=== PATIENT | female | born 1955 | race Caucasian/White ===

== ENCOUNTER 2016-09-18 14:31 | Outpatient (CLI) | payer BC, MEDICARE ==
[~2016-09-18 14:31] MED LIST: ABILIFY10 MG PO; AMITRIPTYLINE25 MG PO; ASPRIN OR; COUMADIN 5MG TAB5 MG PO; COUMADIN 7.5MG7.5 MG PO; CYMBALTA60 MG PO; DUONEB 3 MG/3 ML3 ML IH; FELDENE 20MG. C20 MG PO; FLONASE 50 MCG16 GM; FUROSEMIDE40 MG PO; HYDROCHLOROTHIA25 M1 PO; LORTAB 5/500 501 TAB PO; LORTAB 500 MG-71 TAB PO; METAXALONE800 MG PO; MUCINEX600 M1 PO; NASONEX0.05 MG/AC; NEURONTIN600 MG PO; PATANASE0.6% NS; POTASSIUM CHLO20 ME2 PO; PRILOSEC20 M1 PO; PROAIR HFA0.09 MG/AC IH; SINGULAIR10 MG PO; SKELAXIN800 MG PO; SYMBICORT1 AE1 IH; ULTRAM ER100 MG PO; VERAMYST27.5 MCG/A NS; VITAMIN D31000 IU PO; WARFARIN SOD5 MG PO; WARFARIN SODIU7.5 MG PO; ZOLPIDEM 10MG T10 MG PO
== END 2016-09-18 15:44 ==
LOC: ACC 14:31
DX: Z79.01 Long term (current) use of anticoagulants (principal); Z51.81 Encounter for therapeutic drug level monitoring
CPT/HCPCS: G0463

== ENCOUNTER 2016-10-02 14:25 | Outpatient (CLI) | payer BC, MEDICARE | END 2016-10-02 15:21 | LOC: ACC 14:25 | DX: Z79.01 Long term (current) use of anticoagulants (principal); Z51.81 Encounter for therapeutic drug level monitoring | CPT/HCPCS: G0463 ==

== ENCOUNTER 2016-10-16 14:33 | Outpatient (CLI) | payer MEDICARE | END 2016-10-16 15:45 | LOC: ACC 14:33 | DX: Z79.01 Long term (current) use of anticoagulants (principal); Z51.81 Encounter for therapeutic drug level monitoring | CPT/HCPCS: G0463 ==

== ENCOUNTER → 2017-05-06 | Outpatient (CLI) | payer MEDICARE, OTHER ==
--- NOTE | 2017-05-11 10:54 | RADIOLOGY REPORT PS360 ---
DIG MAMM-SCREEN JACK W/CAD CAD Screening ORDERING PHYSICIAN : Jose Luis Knight MD PATIENT AGE: 62 years GENDER: Female COMPARISON: Previous mammograms: Normal. INDICATION: Routine screening .62-yr-old. No hormones no new complaints previous left breast biopsy. Family history. Aunt and cousin with breast cancer TECHNIQUE: Standard CC and MLO images were obtained. R2 CAD reviewed. FINDINGS: Moderate fibrolinear elements bilaterally. RIGHT BREAST:. Stable with no significant on slight additional vascular calcification noted new features. The 6 mm axillary lymph node was seen in 2004. Unchanged. LEFT BREAST:. Visual inspection as well as CAD review note a focal area of density at the central breast just lateral to mid axis. This measuring up to 5.6 mm on the cc view and could be due to summation shadow as it is less evident on the MLO view. However given its overall appearance it does warrant additional spot view CC and MLO; with ultrasound left breast to further evaluate.. IMPRESSION: Left breast. .Small focal density noted on cc view lateral central breast.. .Warrants additional spot views and ultrasound left breast (. May merely be summation shadow) Right breast stable. Follow-up in one year on right BI-RADS CATEGORY: 0_Incomplete: Need additional imaging. RECOMMENDED FOLLOWUP: ADD ADDITIONAL IMAGING (A letter has been sent to the patient regarding results of the study.)
== END ==
LOC: RAD 16:15
DX: Z12.31 Encounter for screening mammogram for malignant neoplasm of breast (principal)
CPT/HCPCS: G0202

== ENCOUNTER 2017-05-17 15:33 | Emergency (ER) | payer MEDICARE, OTHER ==
[~2017-05-17] VITALS: Ht 165.1 cm; Wt 84.1 kg
--- NOTE | 2017-05-17 16:18 | Urgent Treatment Center Report ---
History of Present Issue Date/Time Seen by Provider 05/17/17 1616 Visit Reason Pt arrived:Walked Presenting Problem:PT EXPOSED TO POISON TATI YESTERDAY. TOOK BENADRAL BUT HASNT HELPED. Location if Accident: Onset of symptoms date/time:/ or onset unknown for:MEDICAL HX UNKNOWN Have you (or family members/close friends) recently traveled outside the [place]? N If Yes, where/when: Have you had exposure to infectious disease within the past month? TB? Other? Specify: c/o poison tati and requesting steroid injection. Went camping over the weekend. Itchy rash left flank/abdomen, right flank and near left shoulder blade since yesterday. Initially blistery and oozing but improved w/ benadryl cream. Adament she needs a steroid injection despite the risks. "because it typically gets in my blood and I get really sick from this". Pt aware of risk and side effects of steroid injections but still wants injection and not topical or PO steroids. Source patient Exam Limitations no limitations ALLERGIES Coded Allergies: adhesive (S-BLISTERING WELTS 03/04/17) amoxicillin (From Augmentin) (I-RASH 03/04/17) cefdinir (I-RASH 03/04/17) clarithromycin (I-RASH 03/04/17) clavulanic acid (From Augmentin) (I-RASH 03/04/17) codeine (NA-NAUSEA/VOMITING 03/04/17) latex (S-BLISTERING WELTS 03/04/17) sulfamethoxazole (From Bactrim) (I-RASH, DIARHEA 03/04/17) trimethoprim (From Bactrim) (I-RASH, DIARRHEA 03/04/17) Home Medications Reported Medications DULOXETINE HCL (Cymbalta 60MG) 60 MG PO BID Aripiprazole (Abilify) 2 MG PO DAILY Montelukast Sodium (Singulair) 10 MG PO QHS POTASSIUM CHL (Potassium Chloride) 20 MEQ PO BID Tramadol Hcl (Ultram Er 100MG) 300 MG PO BID Gabapentin (Neurontin) 600 MG PO TID HYDROCODONE 7.5MG/YRQQ805TI (Hydrocodon-Acetaminoph 7.5-500) 1 TAB PO Q6HP Piroxicam (Feldene 20MG) 20 MG PO DAILY HYDROCHLOROTHIAZIDE (Hydrochlorothiazide) 25 MG PO DAILY BUDESONIDE/FORMOTEROL FUMARATE (Symbicort 160-4.5 Mcg Inhaler) 2 PUFFS IH BID WARFARIN SOD (Warfarin 5MG) 5 MG PO ,, WARFARIN SOD (Warfarin 7.5MG) 7.5 MG PO S,,,SAT Metaxalone 800 MG PO TID Furosemide (Furosemide 40MG) 40 MG PO DAILY [ASPRIN] 1 TAB OR DAILY AMITRIPTYLINE HCL (Amitriptyline HCl) 25 MG PO QHS Zolpidem Tartrate (Zolpidem 10MG) 10 MG PO QHSP Albuterol Sulfate (Proair Hfa) 2 PUFFS IH Q6HP #1 INH OMEPRAZOLE MAGNESIUM (Prilosec 20MG) 40 MG PO QHS Albuterol/Ipratropiu (Duoneb) 3 ML IH Q4HP CHOLECALCIFEROL (VITAMIN D3) (Vitamin D) 1,000 IUNITS PO DAILY Mometasone Furoate (Nasonex) 2 SPR NA BID #1 BOT History Medical History General Angina: No [place]: No Hypertension? Yes Hyperlipidemia? Yes CHF? No COPD? Yes Asthma? Yes CVA? No Seizures? No Diabetes? No GB Disease: Yes MRSA? No TB? No Cancer? No Immunization HX DT/Tetanus UNKNOWN Surgical Hx Previous Surgery?Y HYSTRECTOMY-1988 APPY-1969 GALLBLADDER-1998 DX LAP- 1997 LEFT BUNIONECTOMY-2001 RT. WRIST CARPOL TUNNEL- 1994 back surgery Social History Smoking Hx Smoker: Never Smoker Tobacco: No Alcohol Alcohol: No Review of Systems All Other Systems Reviewed and Negative Constitutional denies chills, denies fever, denies malaise Eyes denies pain, denies other (itching) ENT denies: throat pain, throat swelling. Respiratory denies cough, denies shortness of breath Gastrointestinal denies nausea Musculoskeletal denies joint pain, denies muscle pain Skin see HPI Psychiatric/Neurological denies headache, denies numbness, denies tingling Physical Exam Vital Signs Vital Signs Date Time Temp Pulse Resp B/P Pulse O2 O2 Flow FiO2 Ox Delivery Rate 05/17 1548 98.2 76 18 132/80 96 General Appearance normal appearance Ear, Nose, Throat normal pharynx Respiratory Status No: respiratory distress. Cardiovascular no peripheral edema Neurologic alert, oriented x 3 Mental status normal mood/affect Skin maculopapular rash left flank/abdomen, right flank. Barely visible left scapular region. No drainage or erythema. Medical Decision Making LABS/Meds/Orders Pt receiving controlled substance in ED? No Results/Orders Current Medication Orders Sig/Aidee Start time Last Medication Dose Route Stop Time Status Admin Methylprednisolone 40 MG ONCE ONE 05/17 1645 AC 05/17 Acetate IM 05/17 1646 164 Methylprednisolone 0 .STK-MED ONE 05/17 1641 DC Acetate IM Departure Departure Time of Disposition 1654 Disposition DC Home or Self Care(routine) Clinical Impression Primary Impression: Contact dermatitis Qualifiers: Contact dermatitis type: unspecified Contact dermatitis trigger: unspecified trigger Qualified Code: L25.9 - Unspecified contact dermatitis, unspecified cause Condition STABLE Referrals Lila TAPIA,Jose Miguel (Family) Follow up immediately for new or worsening symptoms. You should notice improvement over the next 24-48 hours so if not, be sure to follow up Patient Instructions DI for Contact Dermatitis, Poison Tati, Poison [place], Poison [place] Additional Instructions * Poison Tati: Discussed how poison vine spreads. Be sure to wash everything you think you might have been wearing when you were exposed. * depomedrol Injection: you received an injection of depomedrol today. This is a steroid as we discussed. If you have surgery try to remember to tell them you received an injection today, 05/17/17. Remember as we discussed, steroids can cause you to feel flushed, jittery, difficult to sleep, energetic, higher blood pressure. You report you have taken steroids before and aware of this. * cool showers or compresses calms the itching. Oatmeal baths may help as well. * If you need additional medication to help with the itching, zyrtec in the morning and if necessary, benadryl at bedtime. Just remember benadryl causes drowsiness. * Cortisone cream may also help. Discharge Counseling Counseled pt/family regarding diagnosis, medications/RX, home care, follow up needs at 1645
[2017-05-17 16:51] VITALS: BP 132/80
== END 2017-05-17 16:51 | disposition home or self-care (01) ==
LOC: UTC 15:33
DX: L25.5 Unspecified contact dermatitis due to plants, except food (principal); Z79.01 Long term (current) use of anticoagulants; Z79.82 Long term (current) use of aspirin; Z79.891 Long term (current) use of opiate analgesic; Z79.899 Other long term (current) drug therapy; I10 Essential (primary) hypertension; E78.5 Hyperlipidemia, unspecified; J44.9 Chronic obstructive pulmonary disease, unspecified
CPT/HCPCS: J1030

== ENCOUNTER → 2017-05-25 | Outpatient (CLI) | payer MEDICARE, OTHER ==
--- NOTE | 2017-05-31 07:13 | RADIOLOGY REPORT PS360 ---
DIG MAMM-DX UNI A/VWS-LT W/CAD, US BREAST-LT COMPLETE W/AXILLA COMPARISON: 05/06/2017, 02/06/2016 INDICATION: Follow-up abnormal mammogram ORDERING PHYSICIAN: Jose Luis Knight MD PATIENT AGE: 62 years TECHNIQUE: Spot compression views are obtained along with left breast ultrasound FINDINGS: There is average fibroglandular tissue. Spot compression views show some minimal residual increased density at the 1:00 region. This however does appear to compress out on the focal spot compression views and is probably unchanged from 6-16 likely related to asymmetric fibroglandular tissue. Left breast ultrasound was obtained and shows a persistent hypoechoic area at 11:00 which measures approximately 4 x 4 millimeters. There is some posterior acoustical shadowing suspected at this area. No other significant anomalies are evident. IMPRESSION: Asymmetric density in the upper outer left breast probably related to fibroglandular tissue. Six-month follow-up recommended. Indeterminate findings regarding left breast ultrasound. 4 mm hypoechoic nodule with posterior acoustical shadowing at 11:00. Biopsy suggested. BI-RADS CATEGORY: 4_Suspicious Abnormality RECOMMENDED FOLLOWUP: Ultrasound guided mammotome biopsy of left breast (A letter has been sent to the patient regarding results of the study.)
== END ==
LOC: RAD 14:30
DX: R92.8 Other abnormal and inconclusive findings on diagnostic imaging of breast (principal)
CPT/HCPCS: G0206-LT

== ENCOUNTER → 2017-06-01 | Outpatient (CLI) | payer MEDICARE, OTHER | LOC: LAB 14:24 | DX: J45.41 Moderate persistent asthma with (acute) exacerbation (principal); Z79.01 Long term (current) use of anticoagulants ==

== ENCOUNTER → 2017-06-04 | Outpatient (CLI) | payer MEDICARE, OTHER ==
--- NOTE | 2017-06-04 17:10 | RADIOLOGY REPORT PS360 ---
CHEST(2 VIEWS-NOT PORTABLE) HISTORY: Shortness of breath MODERATE PERSISTANT ASTHMA ORDERING PHYSICIAN: Jose Miguel Sharp MD PATIENT AGE: 62 years COMPARISON: 08/28/2013 FINDINGS: The cardiomediastinal silhouette and pulmonary vascularity are within normal limits. Hyperinflation with attenuation of the peripheral pulmonary vessels consistent with obstructive airway disease. There are mild fibrotic changes in the left lower lobe and there is evidence of old granulomatous disease. No lobar consolidation or collapse. No acute bony anomalies. There is an old left seventh rib fracture IMPRESSION: 1. No change with no acute finding. 2. Obstructive airway disease with old granulomatous disease and left lower lobe fibrosis.
== END ==
LOC: RAD 16:19
DX: J45.41 Moderate persistent asthma with (acute) exacerbation (principal)

== ENCOUNTER → 2017-06-15 | Outpatient (CLI) | payer MEDICARE, OTHER ==
--- NOTE | 2017-06-22 10:45 | RADIOLOGY REPORT PS360 ---
US MAMMOTOME-LT DIG MAMM-DX UNI-LT W/CAD, US BREAST-LT COMPLETE W/AXILLA, COMPARISON: Ultrasound and mammogram of 05/25/2017 INDICATION: Left breast nodule ORDERING PHYSICIAN: Jose Luis Knight MD PATIENT AGE: 62 years Left breast ultrasound: Prebiopsy ultrasound performed and confirms presence of a suspicious hypoechoic nodule at 11:00 similar to the abdomen on the noted on 05/25/2017. TECHNIQUE: Following obtaining informed consent under aseptic conditions using sonographic guidance and local anesthesia with 1% buffered lidocaine fine-needle aspiration was first performed of the nodule then, deeper anesthesia obtained with lidocaine mixed with epinephrine, a 9 gauge mammotomy needle was inserted and observed to be just along the dorsal aspect of the nodule of interest. Multiple core biopsies were obtained in the nodule was no longer evident. A titanium clip with collagen plug was attempted to be placed however the clip did not employ. The patient tolerated the procedure well without evidence of immediate complication. DIG MAMM-DX UNI-LT : Post biopsy changes present within the medial aspect of the left breast. No suspicious and amount is apparent. Pathology: Fibrocystic changes with focal ductal epithelial hyperplasia. Negative for atypia or malignancy. IMPRESSION: Successful ultrasound-guided mammotome biopsy of the left breast showing fibrocystic changes. BI-RADS CATEGORY: 2_Benign RECOMMENDED FOLLOWUP: 6 month sonographic follow-up per routine protocol (A letter has been sent to the patient regarding results of the study.)
== END ==
LOC: RAD 09:49
PROC: 0H9U3ZX Drainage of Left Breast, Percutaneous Approach, Diagnostic (ICD-10-PCS; principal; 2017-06-15)
DX: N63.22 Unspecified lump in the left breast, upper inner quadrant (principal)
CPT/HCPCS: C2618; G0206-LT

== ENCOUNTER → 2017-06-16 | Outpatient (CLI) | payer MEDICARE, OTHER ==
[2017-06-16 11:27] LABS: HEMOGLOBIN 12.6 g/dL (12.2-16.2); LYMPH # 2.5 K/mm3 (0.7-4.5); LYMPH % 28.7 % (10-50.0)
[2017-06-16 13:22] LABS: BUN 10 mg/dL (7-18); GFR (ESTIMATED) 73 ML/MIN (59-)
== END ==
LOC: LAB 11:06
PROVIDERS: Internal Medicine Adolescent Medicine
DX: J45.41 Moderate persistent asthma with (acute) exacerbation (principal); E78.5 Hyperlipidemia, unspecified